=== PATIENT | male | born 1950 | race Caucasian/White ===

== ENCOUNTER 2016-04-26 07:31 | Day surgery (SDC) | payer OTHER, MEDICARE ==
[2016-04-19 14:19] VITALS: BMI 28.6
[2016-04-26] MEDS ORDERED: PROPOFOL 20 ML ONE ×2 (07:35)
[2016-04-26 09:01] VITALS: TEMP 97.4
[2016-04-26 09:12] VITALS: BP 110/70; PULSE 70
--- NOTE | 2016-04-27 16:29 | PATH ---
Surgical Pathology Report Patient Name: DEBBIE GAO [facility]. Rec. #: [id number] /Age/Gender: 1950 (Age: 66) / M Account: [id number] Location: [facility]-ENDOSCOPY Taken: 04/26/2016 Received: 04/26/2016 Reported: 04/27/2016 Physicians: Wayne Baltazar M.D. Specimen(s) Received BX RIGHT COLON Clinical History Rule out colon cancer Polyp Final Diagnosis RIGHT COLON, BIOPSY: TUBULAR ADENOMA. Electronically Signed Anitra Velasquez M.D. Gross Description Received in formalin, labeled "right colon" is a varner, irregular portion of soft tissue measuring 0.1 cm. in greatest dimension. The specimen is submitted in toto in one cassette. /04/26/201604/26/2016
== END 2016-04-26 09:20 | disposition home or self-care (01) ==
LOC: FASU-ENDO 07:31
PROVIDERS: ATTEND Internal Medicine Gastroenterology
PROC: 0DBK8ZX Excision of Ascending Colon, Via Natural or Artificial Opening Endoscopic, Diagnostic (ICD-10-PCS; principal; 2016-04-26 08:33)
DX: Z12.11 Encounter for screening for malignant neoplasm of colon (principal); D12.2 Benign neoplasm of ascending colon
CPT/HCPCS: 88305-TC